=== PATIENT | female | born 1960 | race Caucasian/White ===

== ENCOUNTER → 2021-06-13 | Outpatient (CLI) | payer BC | LOC: KOH-I 10:05 | DX: M79.672 Pain in left foot (principal); M79.671 Pain in right foot; M19.072 Primary osteoarthritis, left ankle and foot; M19.071 Primary osteoarthritis, right ankle and foot | CPT/HCPCS: 73630 ==

== ENCOUNTER → 2021-06-15 | Outpatient (CLI) | payer BC | LOC: KOH-I 06-13 10:15 | DX: R94.5 Abnormal results of liver function studies (principal); Z90.49 Acquired absence of other specified parts of digestive tract | CPT/HCPCS: 76705 ==

== ENCOUNTER → 2021-07-04 | Outpatient (CLI) | payer BC | LOC: KOH-I 09:56 | DX: M25.572 Pain in left ankle and joints of left foot (principal); M19.072 Primary osteoarthritis, left ankle and foot | CPT/HCPCS: 73610 ==

== ENCOUNTER → 2022-01-24 | Outpatient (CLI) | payer BC | LOC: KOH-I 12:29 | DX: K21.9 Gastro-esophageal reflux disease without esophagitis (principal); Z77.118 Contact with and (suspected) exposure to other environmental pollution | CPT/HCPCS: 71046 ==

== ENCOUNTER → 2022-03-05 | Outpatient (CLI) | payer BC | LOC: KOH-I 10:09 | DX: R06.00 Dyspnea, unspecified (principal) | CPT/HCPCS: 71046 ==

== ENCOUNTER → 2022-06-12 | Outpatient (CLI) | payer BC | LOC: EXRD 13:34 | DX: R22.42 Localized swelling, mass and lump, left lower limb (principal) | CPT/HCPCS: 93971 ==